=== PATIENT | female | born 1980 | race American Indian/Alaskan Native ===

== ENCOUNTER 2017-03-09 09:33 | Emergency (ER) | payer SELFPAY ==
[2017-03-09 10:06] LABS: Basophils % (Auto) 0.4 % (0.0-1.8); Eosinophils % (Auto) 0.1 % (0.0-4.3); Hematocrit 43.2 % (30.3-42.9); Hemoglobin 14.7 gm/dl (10.1-14.3); Mean Corpuscular HGB Conc 34 % (30-34); Mean Corpuscular Hemoglobin 28 pg (28-32); Mean Corpuscular Volume 81 fl (79-97); Platelet Count 275 K/mm3 (140-440); Red Blood Count 5.33 M/mm3 (3.65-5.03); Red Cell Distribution Width 14.1 % (13.2-15.2); White Blood Count 15.3 K/mm3 (4.5-11.0)
[2017-03-09 10:34] LABS: Bacteria,Urine 1+ /HPF (Negative); Bilirubin,Urine NEG (Negative); Blood,Urine SM (Negative); Ketones,Urine 80 mg/dL (Negative); Leukocyte Esterase,Urine NEG (Negative); Mucus,Urine FEW /HPF; Nitrite,Urine NEG (Negative); Protein,Urine <15 mg/dL mg/dL (Negative); Urobilinogen,Urine < 2.0 mg/dL (<2.0)
[2017-03-09 11:11] LABS: Alanine Aminotransferase 54 units/L (7-56); Albumin 4.3 g/dL (3.9-5); Albumin/Globulin Ratio 1.1 %; Alkaline Phosphatase 54 units/L (35-129); Anion Gap 22 mmol/L; BUN/Creatinine Ratio 8.88; Blood Urea Nitrogen 8 mg/dL (7-17); Calcium 9.5 mg/dL (8.4-10.2); Carbon Dioxide 24 mmol/L (22-30); Chloride 96.2 mmol/L (98-107); Glucose 121 mg/dL (65-100); Lipase 93 units/L (13-60); Potassium 3.3 mmol/L (3.6-5.0); Sodium 139 mmol/L (137-145); Total Protein 8.1 g/dL (6.3-8.2)
[2017-03-09 15:34] VITALS: BP 152/108
[2017-03-09] MEDS ORDERED: NACL 0.9% 1000 ML 1,000 ML IV ONE (17:10)
[2017-03-09] MEDS ORDERED: ZOFRAN IV ONE (17:10)
--- NOTE | 2017-03-09 17:17 | Emergency Department Report ---
HPI - General Chief Complaint: Abdominal Pain Time Seen by Provider: 03/09/17 17:10 - HPI HPI: Room 39 The pt is a 37 y/o female p/w cc of AP and CP. The pt statesshes had constant DAT and SP abd pain for the past 4 days. Pt c/o n/v. This AM the pt developed SSCP decribed as sharp in nature and associated with diaphoresis. Pt states the CP lasted several hours then resolved. Pt denies SOB, dysuria, hematuria, VB or Vag d/c. The pt believes her sxs are due to a recent in the family. Pt has never had a stress test or cardiac catheterization ED Past Medical Hx - Past Medical History Hx Hypertension: Yes - Surgical History Hx Cholecystectomy: Yes - Family History Family history: no significant - Social History Smoking Status: Never Smoker Substance Use Type: Alcohol (occ) - Medications Home Medications: Home Medications Medication Instructions Recorded Confirmed Last Taken Type Acetaminophen/Codeine 1 tab PO Q6H PRN #7 tab 08/27/14 Unknown Rx [Acetaminophen-Codeine #3 TAB] Hyoscyamine Subl [Levsin Sl] 0.125 mg SL Q4HR PRN #7 tablet 08/27/14 Unknown Rx Promethazine [Phenergan TAB] 25 mg PO Q6H PRN #10 tablet 08/27/14 Unknown Rx Famotidine [Pepcid] 20 mg PO BID #30 tablet 03/09/17 Unknown Rx Promethazine [Phenergan TAB] 25 mg PO Q6HR PRN #20 tab 03/09/17 Unknown Rx Promethazine [Phenergan] 25 mg CO Q6HR PRN #5 supp.rect 03/09/17 Unknown Rx ED Review of Systems ROS: Stated complaint: VOMITING X 2 DAYS/ABD/CHEST PAIN Other details as noted in HPI Comment: All other systems reviewed and negative Constitutional: diaphoresis Eyes: denies: eye pain, eye discharge, vision change ENT: denies: ear pain, throat pain Respiratory: denies: cough, shortness of breath, wheezing Cardiovascular: chest pain Endocrine: no symptoms reported Gastrointestinal: abdominal pain, nausea, vomiting Genitourinary: denies: urgency, dysuria, discharge Musculoskeletal: denies: back pain, joint swelling, arthralgia Skin: denies: rash, lesions Neurological: denies: headache, weakness, paresthesias Psychiatric: denies: anxiety, depression Hematological/Lymphatic: denies: easy bleeding, easy bruising Physical Exam - Physical Exam Vital Signs: Vital Signs 03/09/17 03/09/17 09:46 15:32 Temperature 99.1 F 98.7 F Pulse Rate 81 69 Respiratory 18 18 Rate Blood Pressure 131/85 152/108 O2 Sat by Pulse 100 100 Oximetry Physical Exam: GEN: WD, WN F lying on stretcher not appearing to be in acute distress. HEENT: normocephalic, atraumatic PULM: CTA B CV: rrr, no m/r/g ABD: s, with mild discomfort to palpation in the DAT region Neuro: GCS 15 Ext: no deformity ED Course Vital Signs 03/09/17 03/09/17 09:46 15:32 Temperature 99.1 F 98.7 F Pulse Rate 81 69 Respiratory 18 18 Rate Blood Pressure 131/85 152/108 O2 Sat by Pulse 100 100 Oximetry ED Medical Decision Making - Lab Data Result diagrams: 03/09/17 09:54 03/09/17 09:54 Laboratory Tests 03/09/17 03/09/17 03/09/17 09:54 09:54 09:54 WBC 15.3 H RBC 5.33 H Hgb 14.7 H Hct 43.2 H MCV 81 MCH 28 MCHC 34 RDW 14.1 Plt Count 275 Lymph % (Auto) 16.1 Davison % (Auto) 5.8 Eos % (Auto) 0.1 Baso % (Auto) 0.4 Lymph # 2.5 Davison # 0.9 H Eos # 0.0 Baso # 0.1 Seg Neutrophils % 77.6 H Seg Neutrophils # 11.9 H Sodium 139 Potassium 3.3 L Chloride 96.2 L Carbon Dioxide 24 Anion Gap 22 BUN 8 Creatinine 0.9 Estimated GFR > 60 BUN/Creatinine Ratio 8.88 Glucose 121 H Calcium 9.5 Total Bilirubin 1.10 AST 33 ALT 54 Alkaline Phosphatase 54 Troponin T Total Protein 8.1 Albumin 4.3 Albumin/Globulin Ratio 1.1 Lipase 93 H HCG, Qual Negative Urine Color Urine Turbidity Urine pH Ur Specific Brandon Urine Protein Urine Glucose (UA) Urine Ketones Urine Blood Urine Nitrite Urine Bilirubin Urine Urobilinogen Ur Leukocyte Esterase Urine WBC (Auto) Urine RBC (Auto) U Epithel Cells (Auto) Urine Bacteria (Auto) Urine Mucus 03/09/17 03/09/17 09:54 10:18 WBC RBC Hgb Hct MCV MCH MCHC RDW Plt Count Lymph % (Auto) Davison % (Auto) Eos % (Auto) Baso % (Auto) Lymph # Davison # Eos # Baso # Seg Neutrophils % Seg Neutrophils # Sodium Potassium Chloride Carbon Dioxide Anion Gap BUN Creatinine Estimated GFR BUN/Creatinine Ratio Glucose Calcium Total Bilirubin AST ALT Alkaline Phosphatase Troponin T < 0.010 Total Protein Albumin Albumin/Globulin Ratio Lipase HCG, Qual Urine Color Yellow Urine Turbidity Clear Urine pH 5.0 Ur Specific Brandon 1.016 Urine Protein <15 mg/dl Urine Glucose (UA) Neg Urine Ketones 80 Urine Blood Sm Urine Nitrite Neg Urine Bilirubin Neg Urine Urobilinogen < 2.0 Ur Leukocyte Esterase Neg Urine WBC (Auto) 1.0 Urine RBC (Auto) 2.0 U Epithel Cells (Auto) < 1.0 Urine Bacteria (Auto) 1+ Urine Mucus Few - EKG Data -: EKG Interpreted by Or EKG shows normal: sinus rhythm Rate: normal - EKG Data When compared to previous EKG there are: previous EKG unavailable Interpretation: normal EKG - Differential Diagnosis ACS, pancreatitis, GERD, PUD Critical care attestation.: If time is entered above; I have spent that time in minutes in the direct care of this critically ill patient, excluding procedure time. ED Disposition Clinical Impression: Chest pain, Elevated lipase, Abdominal pain Disposition: LEFT AGAINST MED ADVICE Is pt being admited?: No Does the pt Need Aspirin: No Condition: Undetermined Instructions: Chest Pain (ED), Abdominal Pain (ED) Prescriptions: Famotidine [Pepcid] 20 mg PO BID #30 tablet Promethazine [Phenergan TAB] 25 mg PO Q6HR PRN #20 tab PRN Reason: Nausea Promethazine [Phenergan] 25 mg CO Q6HR PRN #5 supp.rect PRN Reason: Vomiting Referrals: PRIMARY CARE, [Primary Care Provider] - 3-5 Days ADRIANA PETERSON MD [Staff Physician] - 3-5 Days RUTH HERNANDES MD [Staff Physician] - 3-5 Days Forms: AMA Form Time of Disposition: 17:45 (pt leaving AMA)
== END 2017-03-09 17:59 | disposition left against medical advice (07) ==
LOC: ED 09:33
DX: R07.9 Chest pain, unspecified (principal); R74.8 Abnormal levels of other serum enzymes; I10 Essential (primary) hypertension
CPT/HCPCS: 36415; 80053; 81001; 83690; 84484; 84703; 85025; 93005; 93010; 96361; 96374; 99283; J2405; J7030

== ENCOUNTER 2020-05-10 15:07 | Emergency (ER) | payer SELFPAY ==
--- NOTE | 2020-05-10 15:33 | Emergency Department Report ---
Blank Doc - Documentation Documentation: 40-year-old female that presents with abdominal pain with n/v. This initial assessment/diagnostic orders/clinical plan/treatment(s) is/are subject to change based on patient's health status, clinical progression and re- assessment by fellow clinical providers in the ED. Further treatment and workup at subsequent clinical providers discretion. Patient/guardians urged not to elope from the ED as their condition may be serious if not clinically assessed and managed. Initial orders include: 1- Patient sent to [facility] for further evaluation and treatment 2- labs 3- UA
[2020-05-10 16:20] LABS: Bilirubin,Urine NEG (Negative); Blood,Urine NEG (Negative); Color,Urine Yellow (Yellow); Mucus,Urine FEW /HPF; RBC,Urine < 1.0 /HPF (0.0-6.0); Urobilinogen,Urine < 2.0 mg/dL (<2.0)
[2020-05-10 16:42] LABS: Basophils % (Auto) 0.2 % (0.0-1.8); Hematocrit 39.9 % (30.3-42.9); Hemoglobin 13.3 gm/dl (10.1-14.3); Lymphocytes # (Auto) 1.3 K/mm3 (1.2-5.4); Lymphocytes % (Auto) 9.5 % (13.4-35.0); Mean Corpuscular HGB Conc 33 % (30-34); Mean Corpuscular Volume 84 fl (79-97); Monocytes # (Auto) 0.3 K/mm3 (0.0-0.8); Monocytes % (Auto) 2.4 % (0.0-7.3); Platelet Count 318 K/mm3 (140-440); Red Blood Count 4.78 M/mm3 (3.65-5.03); Red Cell Distribution Width 15.1 % (13.2-15.2)
[2020-05-10 16:55] LABS: Alanine Aminotransferase 24 units/L (7-56); Albumin 4.3 g/dL (3.9-5); Blood Urea Nitrogen 5 mg/dL (7-17); Calcium 9.4 mg/dL (8.4-10.2); Hemolysis Index 10
[2020-05-10 17:02] LABS: BUN/Creatinine Ratio 7
[2020-05-10] MEDS ORDERED: FAMOTIDINE 20 MG/2 ML INJ IV ONE (19:31)
[2020-05-10] MEDS ORDERED: MORPHINE 4 MG/1 ML INJ IV ONE (19:32)
[2020-05-10] MEDS ORDERED: SODIUM CHLORIDE 0.9% 1000 ML 1,000 ML IV ONE (19:32)
[2020-05-10] MEDS ORDERED: ONDANSETRON 4 MG/2 ML INJ IV ONE (19:32)
--- NOTE | 2020-05-10 20:39 | Cat Scan Report ---
CT ABDOMEN AND PELVIS WITH CONTRAST INDICATION: Abdominal pain CONTRAST: 100 cc Omnipaque 300 IV COMPARISON: 04/12/2014, report unavailable All CT scans at this location are performed using CT dose reduction for ALARA by means of automated e xposure control. NOTE: Resolution is decreased and artifact is introduced by the patient's size. FINDINGS: Lung bases are clear. No pneumoperitoneum is seen. Gallbladder is been removed. No biliary dilatation is seen. Mild fatty infiltration of the liver is seen with hepatomegaly. Liver measures 20 .2 cm in length. No focal lesions are noted. Spleen is not enlarged. Small hiatal hernia is seen. I s ee no abnormalities of the kidneys, adrenals, or pancreas. No evidence of bowel or urinary obstructio n are seen. Appendix appears within normal limits. Mild colonic diverticulosis is seen without eviden ce of diverticulitis. No inflammatory changes are noted. No lymphadenopathy is seen. No free fluid is noted. No adnexal masses are seen. IMPRESSION: No acute abnormalities are seen Signer Name: Aris Galvan MD Signed: 05/10/2020 8:34 PM Workstation Name: [id number]
--- NOTE | 2020-05-10 21:11 | Emergency Department Report ---
ED Abdominal Pain HPI - General Chief Complaint: Abdominal Pain Stated Complaint: NAUSEA Time Seen by Provider: 05/10/20 15:32 Source: patient Mode of arrival: Ambulatory Limitations: No Limitations - History of Present Illness Initial Comments: Patient is a 40-year-old -[place]og[place] female with a history of hypertension who presents to the ED with complaint of acute onset persistent diffuse abdominal pain with persistent intermittent nausea and vomiting for the last 12 hours. Patient states that the last meal she ate was over 24 hours ago and is involved seafood from a restaurant. Patient states that she has not been able to keep anything down for the last 12 hours despite repeated attempts to drink water. Patient states that no one else at home has had similar symptoms. Patient denies dizziness, syncope, fever, chills, cough, chest pain, shortness of breath, dysuria, urinary frequency and urgency, headache, loss of consciousness, vaginal bleeding or vaginal discharge or headache. MD Complaint: abdominal pain, other (nausea and vomiting) -: Sudden, hour(s) (12) Location: diffuse Radiation: none Migration to: no migration Severity scale (0 -10): 6 Quality: cramping, aching, sharp Consistency: constant Improves With: nothing Worsens With: eating, vomiting Context: possible food poisoning Associated Symptoms: denies other symptoms, nausea, vomiting, anorexia. denies: diarrhea, fever, chills, dysuria, hematemesis, melena, syncope - Related Data Previous Rx's Medication Instructions Recorded Last Taken Type Acetaminophen/Codeine 1 tab PO Q6H PRN #7 tab 08/27/14 Unknown Rx [Acetaminophen-Codeine #3 TAB] Hyoscyamine Subl [Levsin Sl] 0.125 mg SL Q4HR PRN #7 tablet 08/27/14 Unknown Rx Promethazine [Phenergan] 25 mg PO Q6H PRN #10 tablet 08/27/14 Unknown Rx Promethazine [Phenergan TAB] 25 mg PO Q6HR PRN #20 tab 03/09/17 Unknown Rx Promethazine [Phenergan] 25 mg [place] Q6HR PRN #5 supp.rect 03/09/17 Unknown Rx Dicyclomine [Bentyl] 20 mg PO Q6H PRN #30 tablet 05/10/20 Unknown Rx Famotidine [Pepcid] 20 mg PO BID #60 tablet 05/10/20 Unknown Rx Ondansetron [Zofran Odt] 4 mg PO Q6HR PRN #20 tab.rapdis 05/10/20 Unknown Rx Allergies Allergy/AdvReac Type Severity Reaction Status Date / Time No Known Allergies Allergy Verified 05/10/20 15:36 ED Review of Systems ROS: Stated complaint: NAUSEA Other details as noted in HPI Constitutional: denies: chills, fever Eyes: denies: eye pain, eye discharge, vision change ENT: denies: ear pain, throat pain Respiratory: denies: cough, shortness of breath, wheezing Cardiovascular: denies: chest pain, palpitations Endocrine: no symptoms reported Gastrointestinal: abdominal pain, nausea, vomiting. denies: diarrhea Genitourinary: denies: urgency, dysuria, discharge Musculoskeletal: denies: back pain, joint swelling, arthralgia Skin: denies: rash, lesions Neurological: denies: headache, weakness, paresthesias Psychiatric: denies: anxiety, depression Hematological/Lymphatic: denies: easy bleeding, easy bruising ED Past Medical Hx - Past Medical History Hx Hypertension: Yes - Surgical History Hx Cholecystectomy: Yes - Social History Smoking Status: Never Smoker Substance Use Type: None - Medications Home Medications: Home Medications Medication Instructions Recorded Confirmed Last Taken Type Acetaminophen/Codeine 1 tab PO Q6H PRN #7 tab 08/27/14 Unknown Rx [Acetaminophen-Codeine #3 TAB] Hyoscyamine Subl [Levsin Sl] 0.125 mg SL Q4HR PRN #7 tablet 08/27/14 Unknown Rx Promethazine [Phenergan] 25 mg PO Q6H PRN #10 tablet 08/27/14 Unknown Rx Promethazine [Phenergan TAB] 25 mg PO Q6HR PRN #20 tab 03/09/17 Unknown Rx Promethazine [Phenergan] 25 mg [place] Q6HR PRN #5 supp.rect 03/09/17 Unknown Rx Dicyclomine [Bentyl] 20 mg PO Q6H PRN #30 tablet 05/10/20 Unknown Rx Famotidine [Pepcid] 20 mg PO BID #60 tablet 05/10/20 Unknown Rx Ondansetron [Zofran Odt] 4 mg PO Q6HR PRN #20 tab.rapdis 05/10/20 Unknown Rx ED Physical Exam - General Limitations: No Limitations General appearance: alert, in no apparent distress - Head Head exam: Present: atraumatic, normocephalic, normal inspection - Eye Eye exam: Present: normal appearance, PERRL, EOMI Pupils: Present: normal accommodation - ENT ENT exam: Present: normal exam, normal orophraynx, mucous membranes moist, TM's normal bilaterally, normal external ear exam - Neck Neck exam: Present: normal inspection, full ROM. Absent: tenderness - Respiratory Respiratory exam: Present: normal lung sounds bilaterally. Absent: respiratory distress, wheezes, rales, chest wall tenderness, accessory muscle use, decreased breath sounds - Cardiovascular Cardiovascular Exam: Present: regular rate, normal rhythm, normal heart sounds. Absent: systolic murmur, diastolic murmur, rubs, gallop - GI/Abdominal GI/Abdominal exam: Present: soft, tenderness (Mildly diffuse abdominal tenderness to palpation), normal bowel sounds. Absent: guarding, rebound, hyperactive bowel sounds, hypoactive bowel sounds, organomegaly - Extremities Exam Extremities exam: Present: normal inspection, full ROM, normal capillary refill - Back Exam Back exam: Present: normal inspection, full ROM. Absent: tenderness, CVA tenderness (R), CVA tenderness (L), muscle spasm, vertebral tenderness - Neurological Exam Neurological exam: Present: alert, oriented X3, CN II-XII intact, normal gait, reflexes normal - Psychiatric Psychiatric exam: Present: normal affect, normal mood - Skin Skin exam: Present: warm, dry, intact, normal color. Absent: rash ED Course Vital Signs 05/10/20 05/10/20 05/10/20 15:36 19:51 20:21 Temperature 98.5 F Pulse Rate 62 Respiratory 18 20 16 Rate Blood Pressure 145/97 O2 Sat by Pulse 100 Oximetry 05/10/20 20:43 Temperature Pulse Rate Respiratory 18 Rate Blood Pressure O2 Sat by Pulse 100 Oximetry ED Medical Decision Making - Lab Data Result diagrams: 05/10/20 16:00 05/10/20 16:00 - Radiology Data Radiology results: report reviewed, image reviewed Findings [address] [address] Cat Scan Report Signed Patient: RICHARD GALVAN MR#: [id number] : 1980 Acct:[id number] Age/Sex: 40 / F ADM Date: 05/10/20 Loc: ED Attending Dr: Ordering Physician: PILI PECK Date of Service: 05/10/20 Procedure(s): CT abdomen pelvis w con Accession Number(s): [id number] cc: PILI PECK CT ABDOMEN AND PELVIS WITH CONTRAST INDICATION: Abdominal pain CONTRAST: 100 cc Omnipaque 300 IV COMPARISON: 04/12/2014, report unavailable All CT scans at this location are performed using CT dose reduction for ALARA by means of automated exposure control. NOTE: Resolution is decreased and artifact is introduced by the patient's size. FINDINGS: Lung bases are clear. No pneumoperitoneum is seen. Gallbladder is been removed. No biliary dilatation is seen. Mild fatty infiltration of the liver is seen with hepatomegaly. Liver measures 20.2 cm in length. No focal lesions are noted. Spleen is not enlarged. Small hiatal hernia is seen. I see no abnormalities of the kidneys, adrenals, or pancreas. No evidence of bowel or urinary obstruction are seen. Appendix appears within normal limits. Mild colonic diverticulosis is seen without evidence of diverticulitis. No inflammatory changes are noted. No lymphadenopathy is seen. No free fluid is noted. No adnexal masses are seen. IMPRESSION: No acute abnormalities are seen Signer Name: Aris Galvan MD Signed: 05/10/2020 8:34 PM Workstation Name: [id number] Transcribed By: Dictated By: Aris Galvan MD Electronically Authenticated By: Aris Galvan MD Signed Date/Time: 05/10/202033 DD/ 30 TD/TT: - Medical Decision Making This is a 40-year-old -[place] female with a history of hypertension who presents to the ED with complaint of acute onset persistent diffuse abdominal pain with persistent intermittent nausea and vomiting for the last 12 hours. Patient states that the last meal she ate was over 24 hours ago and is involved seafood from a restaurant. Patient states that she has not been able to keep anything down for the last 12 hours despite repeated attempts to drink water. Patient states that no one else at home has had similar symptoms. In the ED, patient is alert and oriented x3 and is not in distress. Patient was treated in the ED with normal saline 1 L IV bolus x1, antiemetics Zofran, Pepcid and pain medications. Lab test results were reviewed and showed acute leukocytosis of 14,200, and the rest of the lab test results are all nonactionable. Abdomen pelvis CT scan without contrast showed no acute abnormalities. On reevaluation, patient passed oral fluid challenge in the ED, and the patient's pain is well c ontrolled with medications. Patient was discharged home on antiemetics, antacids and antispasmodic pain medications and was advised to maintain a clear liquid diet for 12 to 24 hours, and to follow-up with her primary care physician in 3 to 5 days for reevaluation or return to the ED immediately if symptoms get worse. - Differential Diagnosis Gastroenteritis; GERD; appendicitis; UTI; gastritis; pancreatitis; colitis Critical care attestation.: If time is entered above; I have spent that time in minutes in the direct care of this critically ill patient, excluding procedure time. ED Disposition Clinical Impression: Viral gastroenteritis, Nausea and vomiting in adult Abdominal pain Qualifiers: Abdominal location: generalized Qualified Code(s): R10.84 - Generalized abdominal pain Disposition: TO HOME OR SELFCARE Is pt being admited?: No Does the pt Need Aspirin: No Condition: Stable Instructions: Abdominal Pain (ED), Acute Nausea and Vomiting (ED), Gastroenteritis (ED) Additional Instructions: All lab test results are nonactionable except for mild leukocytosis of 14,200. Abdomen pelvis CT scan with contrast showed no acute abnormalities. Therefore your symptoms are likely due to a viral syndrome. Therefore maintain a clear liquid diet for 12 to 24 hours, take medication as advised, follow-up with your primary care physician in 3 to 5 days for reevaluation return to the ED immediately if symptoms get worse. Prescriptions: Dicyclomine [Bentyl] 20 mg PO Q6H PRN #30 tablet PRN Reason: Abdominal pain Famotidine [Pepcid] 20 mg PO BID #60 tablet Ondansetron [Zofran Odt] 4 mg PO Q6HR PRN #20 tab.rapdis PRN Reason: Nausea Referrals: [facility] [Provider Group] - 3-5 Days Forms: Work/School Release Form(ED) Time of Disposition: 21:14 Print Language: UPPER SORBI[place]
[2020-05-10 21:47] VITALS: BP 135/79
== END 2020-05-10 21:39 | disposition home or self-care (01) ==
LOC: ED 15:07
DX: A08.4 Viral intestinal infection, unspecified (principal); R11.2 Nausea with vomiting, unspecified; R10.9 Unspecified abdominal pain; I10 Essential (primary) hypertension; Z79.899 Other long term (current) drug therapy; Z90.49 Acquired absence of other specified parts of digestive tract
CPT/HCPCS: 36415; 74177; 80053; 81001; 83690; 84703; 85025; 96361; 96374; 96375; 99284; J2270; J2405; J7030; Q9967

== ENCOUNTER 2020-05-12 09:48 | Emergency (ER) | payer SELFPAY ==
[2020-05-12] MEDS ORDERED: FAMOTIDINE 20 MG/2 ML INJ IV ONE (11:02)
[2020-05-12] MEDS ORDERED: SODIUM CHLORIDE 0.9% 1000 ML 1,000 ML IV ONE (11:02)
[2020-05-12] MEDS ORDERED: ONDANSETRON 4 MG/2 ML INJ IV ONE (11:02)
[2020-05-12] MEDS ORDERED: KETOROLAC 30 MG/1 ML INJ IV ONE (11:02)
[2020-05-12 11:39] LABS: Basophils # (Auto) 0.1 K/mm3 (0.0-0.1); Basophils % (Auto) 0.6 % (0.0-1.8); Eosinophils % (Auto) 0.1 % (0.0-4.3); Hematocrit 36.9 % (30.3-42.9); Hemoglobin 12.5 gm/dl (10.1-14.3); Lymphocytes # (Auto) 1.9 K/mm3 (1.2-5.4); Lymphocytes % (Auto) 18.9 % (13.4-35.0); Mean Corpuscular HGB Conc 34 % (30-34); Mean Corpuscular Volume 83 fl (79-97); Monocytes # (Auto) 0.5 K/mm3 (0.0-0.8); Monocytes % (Auto) 4.8 % (0.0-7.3); Platelet Count 284 K/mm3 (140-440); Red Blood Count 4.48 M/mm3 (3.65-5.03); Red Cell Distribution Width 14.9 % (13.2-15.2)
[2020-05-12] MEDS ORDERED: MORPHINE 4 MG/1 ML INJ IV STA (11:47)
[2020-05-12] MEDS ORDERED: MORPHINE 4 MG/1 ML INJ ONE (11:47)
--- NOTE | 2020-05-12 11:47 | Emergency Department Report ---
ED Abdominal Pain HPI - General Chief Complaint: Abdominal Pain Stated Complaint: ABD PAIN Time Seen by Provider: 05/12/20 10:56 Source: patient Mode of arrival: Ambulatory Limitations: No Limitations - History of Present Illness Initial Comments: 40-year-old obese -[place] female presents emergency department complaining of reemergence of her vomiting and severe abdominal pain for which she was seen and evaluated in the emergency department a couple days ago by Dr. Azalea Esqueda. At that time she was found to have no significant emergent me dical issue and was discharged home patient states that her symptoms did resolve on yesterday but did begin to come back late toward yesterday and early this morning for reasons that are unknown she reports no hemoptysis no hematemesis no hematochezia. No cough no fever, chills, sweats pain is sharp and burning Location: diffuse Radiation: none Severity: mild, moderate Severity scale (0 -10): 10 Consistency: constant Improves With: nothing Worsens With: nothing Associated Symptoms: denies: vomiting, diarrhea, constipation, dysuria, hematemesis, hematochezia, hematuria, anorexia, syncope - Related Data Previous Rx's Medication Instructions Recorded Last Taken Type Acetaminophen/Codeine 1 tab PO Q6H PRN #7 tab 08/27/14 Unknown Rx [Acetaminophen-Codeine #3 TAB] Promethazine [Phenergan] 25 mg PO Q6H PRN #10 tablet 08/27/14 Unknown Rx Promethazine [Phenergan TAB] 25 mg PO Q6HR PRN #20 tab 03/09/17 Unknown Rx Promethazine [Phenergan] 25 mg [place] Q6HR PRN #5 supp.rect 03/09/17 Unknown Rx Dicyclomine [Bentyl] 20 mg PO Q6H PRN #30 tablet 05/10/20 Unknown Rx Famotidine [Pepcid] 20 mg PO BID #60 tablet 05/10/20 Unknown Rx Hyoscyamine Subl [Levsin Sl 0.125 0.125 mg SL Q4HR PRN #7 tablet 05/12/20 Unknown Rx TAB] Ondansetron [Zofran ODT TAB] 4 mg PO Q6HR PRN #20 tab.rapdis 05/12/20 Unknown Rx Allergies Allergy/AdvReac Type Severity Reaction Status Date / Time No Known Allergies Allergy Verified 05/10/20 15:36 ED Review of Systems ROS: Stated complaint: ABD PAIN Other details as noted in HPI Comment: All other systems reviewed and negative ED Past Medical Hx - Past Medical History Hx Hypertension: Yes - Surgical History Hx Cholecystectomy: Yes - Social History Smoking Status: Never Smoker Substance Use Type: Alcohol - Medications Home Medications: Home Medications Medication Instructions Recorded Confirmed Last Taken Type Acetaminophen/Codeine 1 tab PO Q6H PRN #7 tab 08/27/14 Unknown Rx [Acetaminophen-Codeine #3 TAB] Promethazine [Phenergan] 25 mg PO Q6H PRN #10 tablet 08/27/14 Unknown Rx Promethazine [Phenergan TAB] 25 mg PO Q6HR PRN #20 tab 03/09/17 Unknown Rx Promethazine [Phenergan] 25 mg [place] Q6HR PRN #5 supp.rect 03/09/17 Unknown Rx Dicyclomine [Bentyl] 20 mg PO Q6H PRN #30 tablet 05/10/20 Unknown Rx Famotidine [Pepcid] 20 mg PO BID #60 tablet 05/10/20 Unknown Rx Hyoscyamine Subl [Levsin Sl 0.125 0.125 mg SL Q4HR PRN #7 tablet 05/12/20 Unknown Rx TAB] Ondansetron [Zofran ODT TAB] 4 mg PO Q6HR PRN #20 tab.rapdis 05/12/20 Unknown Rx ED Physical Exam - General Limitations: No Limitations General appearance: alert, in no apparent distress - Head Head exam: Present: atraumatic, normocephalic - Eye Eye exam: Present: normal appearance, PERRL Pupils: Present: normal accommodation - ENT ENT exam: Present: mucous membranes moist - Neck Neck exam: Present: normal inspection - Respiratory Respiratory exam: Present: normal lung sounds bilaterally. Absent: respiratory distress - Cardiovascular Cardiovascular Exam: Present: regular rate, normal rhythm. Absent: systolic murmur, diastolic murmur, rubs, gallop - GI/Abdominal GI/Abdominal exam: Present: soft, tenderness, normal bowel sounds, other (No Rovsing, no George Perez, no Worton sign, no rebound tenderness noted. There is no distention the abdomen is soft.). Absent: distended, guarding, rebound, hyperactive bowel sounds, organomegaly, mass, bruit - Extremities Exam Extremities exam: Present: normal inspection - Back Exam Back exam: Present: normal inspection - Neurological Exam Neurological exam: Present: alert, oriented X3 - Psychiatric Psychiatric exam: Present: normal affect, normal mood - Skin Skin exam: Present: warm, dry, intact, normal color. Absent: rash ED Course Vital Signs 05/12/20 05/12/20 09:59 11:50 Temperature 98.0 F Pulse Rate 59 L 58 L Respiratory 20 20 Rate Blood Pressure 153/83 Blood Pressure 151/99 [Left] O2 Sat by Pulse 100 100 Oximetry ED Medical Decision Making - Lab Data Result diagrams: 05/12/20 11:24 05/12/20 11:24 - Radiology Data Radiology results: report reviewed Referring Physician:RYAN CASTPatient Name:RICHARD PERDUEPatient ID:[id number] of :[id number]:FemaleAccession:[id number] Date:[id number] Status:[place] [address] Cat Scan Report Signed Patient: RICHARD PERDUE MR#: [id number] : 1980 Acct:[id number] Age/Sex: 40 / F ADM Date: 05/12/20 Loc: ED Attending Dr: Ordering Physician: PILI BACA Date of Service: 05/12/20 Procedure(s): CT abdomen pelvis w con Accession Number(s): [id number] cc: PILI BACA CT ABDOMEN AND PELVIS WITH CONTRAST INDICATION / CLINICAL INFORMATION: MAIN. TECHNIQUE: Axial CT images were obtained through the abdomen and pelvis after 100 cc Omnipaque 300 milligrams percent IV contrast. All CT scans at this location are performed using CT dose reduction for ALARA by means of automated exposure control. COMPARISON: 05/10/2020 FINDINGS: LOWER CHEST: No significant abnormality. LIVER: No significant abnormality. GALLBLADDER: Previous cholecystectomy BILE DUCTS: No significant abnormality. PANCREAS: No significant abnormality. SPLEEN: No significant abnormality. ADRENALS: No significant abnormality. RIGHT KIDNEY and URETER: No significant abnormality. LEFT KIDNEY and URETER: No significant abnormality. STOMACH and SMALL BOWEL: Small hiatal hernia is present COLON: Diverticulosis of the descending colon and sigmoid colon present APPENDIX: No significant abnormality. PERITONEUM: No free fluid. No free air. No fluid collection. LYMPH NODES: No significant adenopathy. AORTA and ARTERIES: No significant abnormality. IVC and VEINS: No significant abnormality. URINARY BLADDER: No significant abnormality. REPRODUCTIVE ORGANS: No significant abnormality. ADDITIONAL FINDINGS: None. SKELETAL SYSTEM: No significant abnormality. IMPRESSION: 1. No interval changes compared to previous exam 2. Diverticulosis descending colon sigmoid colon. 3. Hiatal hernia Signer Name: Tico Lazo MD Signed: 05/12/2020 2:07 PM Workstation Name: [id number] Transcribed By: FLOYD Dictated By: Tico Lazo MD Electronically Authenticated By: Tico Lazo MD Signed Date/Time: 05/12/201406 DD/ 01 TD/TT: - Medical Decision Making This patient presents with abdominal pain of unclear etiology. A CT scan was performed to evaluate for potential causes of the abdominal pain, however, neither the clinical exam nor the CT has identified an emergent etiology for the abdominal pain. Specifically, given the benign exam, the laboratory studies, and unremarkable CT, I have a very low suspicion for appendicitis, ischemic bowel, bowel perforation, or any other life threatening disease. I have discussed with the patient the level of uncertainty with undifferentiated abdominal pain and clearly explained the need to follow-up as noted on the discharge instructions, or return to the Emergency Department immediately if the pain worsens, develops fever, persistent and uncontrollable vomiting, or for any new symptoms or concerns. Critical care attestation.: If time is entered above; I have spent that time in minutes in the direct care of this critically ill patient, excluding procedure time. ED Disposition Clinical Impression: Abdominal pain, Nausea and vomiting in adult Disposition: DC-01 TO HOME OR SELFCARE Is pt being admited?: No Does the pt Need Aspirin: No Condition: Stable Instructions: Abdominal Pain (ED), Acute Nausea and Vomiting (ED) Prescriptions: Hyoscyamine Subl [Levsin Sl 0.125 TAB] 0.125 mg SL Q4HR PRN #7 tablet PRN Reason: Spasms Ondansetron [Zofran ODT TAB] 4 mg PO Q6HR PRN #20 tab.rapdis PRN Reason: Nausea Referrals: PRIMARY CARE, [Primary Care Provider] - 3-5 Days [facility] [Provider Group] - 3-5 Days
[2020-05-12 12:15] LABS: Alanine Aminotransferase 29 units/L (7-56); BUN/Creatinine Ratio 9; Blood Urea Nitrogen 7 mg/dL (7-17); Calcium 9.2 mg/dL (8.4-10.2); Hemolysis Index 8
[2020-05-12 12:22] LABS: Bilirubin,Direct < 0.2 mg/dL (0-0.2)
--- NOTE | 2020-05-12 14:11 | Cat Scan Report ---
CT ABDOMEN AND PELVIS WITH CONTRAST INDICATION / CLINICAL INFORMATION: MAIN. TECHNIQUE: Axial CT images were obtained through the abdomen and pelvis after 100 cc Omnipaque 300 milligrams pe rcent IV contrast. All CT scans at this location are performed using CT dose reduction for ALARA by means of automated exposure control. COMPARISON: 05/10/2020 FINDINGS: LOWER CHEST: No significant abnormality. LIVER: No significant abnormality. GALLBLADDER: Previous cholecystectomy BILE DUCTS: No significant abnormality. PANCREAS: No significant abnormality. SPLEEN: No significant abnormality. ADRENALS: No significant abnormality. RIGHT KIDNEY and URETER: No significant abnormality. LEFT KIDNEY and URETER: No significant abnormality. STOMACH and SMALL BOWEL: Small hiatal hernia is present COLON: Diverticulosis of the descending colon and sigmoid colon present APPENDIX: No significant abnormality. PERITONEUM: No free fluid. No free air. No fluid collection. LYMPH NODES: No significant adenopathy. AORTA and ARTERIES: No significant abnormality. IVC and VEINS: No significant abnormality. URINARY BLADDER: No significant abnormality. REPRODUCTIVE ORGANS: No significant abnormality. ADDITIONAL FINDINGS: None. SKELETAL SYSTEM: No significant abnormality. IMPRESSION: 1. No interval changes compared to previous exam 2. Diverticulosis descending colon sigmoid colon. 3. Hiatal hernia Signer Name: Tico Lazo MD Signed: 05/12/2020 2:07 PM Workstation Name: [email or web address]
[2020-05-12 17:23] VITALS: BP 137/61
== END 2020-05-12 17:24 | disposition home or self-care (01) ==
LOC: ED 09:48
DX: R10.9 Unspecified abdominal pain (principal); R11.2 Nausea with vomiting, unspecified
CPT/HCPCS: 36415; 74177; 80048; 80076; 83690; 85025; 96361; 96374; 96375; 99284; J1885; J2270; J2405; J7030; Q9967

== ENCOUNTER 2021-01-28 19:35 | Emergency (ER) | payer BC ==
[2021-01-28 23:42] LABS: Bilirubin,Urine NEG (Negative); Blood,Urine NEG (Negative); Color,Urine Yellow (Yellow); Protein,Urine <15 mg/dL mg/dL (Negative); Urobilinogen,Urine < 2.0 mg/dL (<2.0)
[2021-01-28] MEDS ORDERED: predniSONE 20 MG TAB PO ONE (23:50)
[2021-01-28] MEDS ORDERED: KETOROLAC 60 MG/2 ML INJ IM ONE (23:50)
[2021-01-28 23:51] LABS: HCG Qualitative,Urine Negative (Negative)
--- NOTE | 2021-01-29 | Emergency Department Report ---
ED Back Pain/Injury HPI - General Chief Complaint: Back Pain/Injury Stated Complaint: SCIATIC NERVE Time Seen by Provider: 01/28/21 22:53 Source: patient Limitations: No Limitations - History of Present Illness Initial Comments: This is a 32-year-old female nontoxic, well nourished in appearance, no acute signs of distress presents to the ED with c/o of acute on chronic lower back pain. Patient stated that yesterday she was walking up the stairs and tripped and had a fall to right lower back area. Stated since then beleives it aggravated her lower back pains. Patient states has history of sciatica nerve pain which is similar symptoms as today. Patient states that pain radiates through to his right lower extremity. Patient denies any other injuries or trauma. Patient denies any other complaints or symptoms. Patient denies any LOC. Denies any head or neck pains. Denies any bladder or bowel instability. Patient denies any urinary symptoms. Denies any fever, chills, nausea, vomiting, headache, stiff neck, chest pain or shortness of breath. Patient denies any numbness or tingling. Denies any allergies. MD Complaint: back pain -: days(s) Similar Symptoms Previously: Yes Place: home Radiation: right leg Severity: mild Severity scale (0 -10): 8 Quality: aching Consistency: intermittent Improves With: immobilization, sitting upright Worsens With: movement, walking Context: while lifting, turning/twisting Associated Symptoms: denies other symptoms. denies: confusion, weakness, chest pain, difficulty walking, cough, difficulty urinating, diaphoresis, incontinence, fever/chills, constipation, headaches, abdominal pain, loss of appetite, malaise, nausea/vomiting, rash, seizure, shortness of breath, syncope - Related Data Previous Rx's Medication Instructions Recorded Last Taken Type Acetaminophen/Codeine 1 tab PO Q6H PRN #7 tab 08/27/14 Unknown Rx [Acetaminophen-Codeine #3 TAB] Promethazine [Phenergan] 25 mg PO Q6H PRN #10 tablet 08/27/14 Unknown Rx Promethazine [Phenergan TAB] 25 mg PO Q6HR PRN #20 tab 03/09/17 Unknown Rx Promethazine [Phenergan] 25 mg [place] Q6HR PRN #5 supp.rect 03/09/17 Unknown Rx Dicyclomine [Bentyl] 20 mg PO Q6H PRN #30 tablet 05/10/20 Unknown Rx Famotidine [Pepcid] 20 mg PO BID #60 tablet 05/10/20 Unknown Rx Hyoscyamine Subl [Levsin Sl 0.125 0.125 mg SL Q4HR PRN #7 tablet 05/12/20 Unknown Rx TAB] Ondansetron [Zofran ODT TAB] 4 mg PO Q6HR PRN #20 tab.rapdis 05/12/20 Unknown Rx Cyclobenzaprine [Flexeril] 10 mg PO QHS PRN #10 tablet 01/29/21 Unknown Rx Naproxen 500 mg PO Q12H PRN #12 tablet 01/29/21 Unknown Rx Allergies Allergy/AdvReac Type Severity Reaction Status Date / Time No Known Allergies Allergy Verified 05/10/20 15:36 ED Review of Systems ROS: Stated complaint: SCIATIC NERVE Other details as noted in HPI Comment: All other systems reviewed and negative Constitutional: denies: chills, fever Eyes: denies: eye pain, eye discharge, vision change ENT: denies: ear pain, throat pain Respiratory: denies: cough, shortness of breath, wheezing Cardiovascular: denies: chest pain, palpitations Endocrine: no symptoms reported Gastrointestinal: denies: abdominal pain, nausea, diarrhea Genitourinary: denies: urgency, dysuria, discharge Musculoskeletal: back pain. denies: joint swelling, arthralgia Skin: denies: rash, lesions Neurological: denies: headache, weakness, paresthesias Psychiatric: denies: anxiety, depression Hematological/Lymphatic: denies: easy bleeding, easy bruising ED Past Medical Hx - Past Medical History Previous Medical History?: Yes Hx Hypertension: Yes (With ) - Surgical History Past Surgical History?: Yes Hx Cholecystectomy: Yes - Social History Smoking Status: Never Smoker Substance Use Type: Alcohol - Medications Home Medications: Home Medications Medication Instructions Recorded Confirmed Last Taken Type Acetaminophen/Codeine 1 tab PO Q6H PRN #7 tab 08/27/14 Unknown Rx [Acetaminophen-Codeine #3 TAB] Promethazine [Phenergan] 25 mg PO Q6H PRN #10 tablet 08/27/14 Unknown Rx Promethazine [Phenergan TAB] 25 mg PO Q6HR PRN #20 tab 03/09/17 Unknown Rx Promethazine [Phenergan] 25 mg [place] Q6HR PRN #5 supp.rect 03/09/17 Unknown Rx Dicyclomine [Bentyl] 20 mg PO Q6H PRN #30 tablet 05/10/20 Unknown Rx Famotidine [Pepcid] 20 mg PO BID #60 tablet 05/10/20 Unknown Rx Hyoscyamine Subl [Levsin Sl 0.125 0.125 mg SL Q4HR PRN #7 tablet 05/12/20 Unknown Rx TAB] Ondansetron [Zofran ODT TAB] 4 mg PO Q6HR PRN #20 tab.rapdis 05/12/20 Unknown Rx Cyclobenzaprine [Flexeril] 10 mg PO QHS PRN #10 tablet 01/29/21 Unknown Rx Naproxen 500 mg PO Q12H PRN #12 tablet 01/29/21 Unknown Rx ED Physical Exam - General Limitations: No Limitations General appearance: alert, in no apparent distress - Head Head exam: Present: atraumatic, normocephalic - Eye Eye exam: Present: normal appearance, PERRL, EOMI - ENT ENT exam: Present: normal exam - Neck Neck exam: Present: normal inspection, full ROM. Absent: tenderness, meningismus, lymphadenopathy - Respiratory Respiratory exam: Present: normal lung sounds bilaterally. Absent: respiratory distress, wheezes, rales, rhonchi, stridor, chest wall tenderness, accessory muscle use, decreased breath sounds, prolonged expiratory - Cardiovascular Cardiovascular Exam: Present: regular rate, normal rhythm, normal heart sounds. Absent: bradycardia, tachycardia, irregular rhythm, systolic murmur, diastolic murmur, rubs, gallop - GI/Abdominal GI/Abdominal exam: Present: soft. Absent: distended, tenderness - Extremities Exam Extremities exam: Present: normal inspection, full ROM, normal capillary refill. Absent: tenderness, joint swelling, calf tenderness - Back Exam Back exam: Present: normal inspection, full ROM, paraspinal tenderness (right lumbar paraspinal area). Absent: tenderness, CVA tenderness (R), CVA tenderness (L), muscle spasm, vertebral tenderness, rash noted - Expanded Back Exam Expanded Back exam: Absent: saddle anesthesia Back exam: Negative Straight Leg Raising: Left, Right - Neurological Exam Neurological exam: Present: alert, oriented X3, normal gait - Psychiatric Psychiatric exam: Present: normal affect, normal mood - Skin Skin exam: Present: warm, dry, intact, normal color. Absent: rash ED Course Vital Signs 01/28/21 20:07 Temperature 98.8 F Pulse Rate 88 Respiratory 19 Rate Blood Pressure 172/104 O2 Sat by Pulse 95 Oximetry - Reevaluation(s) Reevaluation #1: 01/28/21 23:59 Patient is speaking in full sentences with no signs of distress noted. ED Medical Decision Making - Radiology Data [address] [address] XRay Report Signed Patient: RICHARD PERDUE MR#: [id number] : 1980 Acct:[id number] Age/Sex: 40 / F ADM Date: 01/28/21 Loc: ED Attending : Ordering Physician: CHRISTINA REDDY NP Date of Service: 01/28/21 Procedure(s): XR spine lumbosacral 2-3V Accession Number(s): [id number] cc: CHRISTINA REDDY NP Fluoro Time In Minutes: Pelvis one view INDICATION: Fall FINDINGS: Bilateral femoral heads well-seated in the acetabulum. No acute fractures seen. Sacrum appears normal. Superior and inferior pubic rami appear intact. IMPRESSION: No acute findings. Lumbar spine 2 views INDICATION: Fall FINDINGS: Alignment appears normal. No compression fractures seen. No subluxation. Partial difficult to evaluate L5 due to facet hypertrophy. Signer Name: Brian Israel MD Signed: 01/29/2021 12:39 AM Workstation Name: [id number] Transcribed By: CW Dictated By: AILIN ISRAEL MD Electronically Authenticated By: AILIN ISRAEL MD Signed Date/Time: 01/29/2138 DD/ TD/TT: [address] [address] XRay Report Signed Patient: RICHARD PEDRUE MR#: [id number] : 1980 Acct:[id number] Age/Sex: 40 / F ADM Date: 01/28/21 Loc: ED Attendrogelio carlos Dr: Ordering Physician: CHRISTINA REDDY NP Date of Service: 01/28/21 Procedure(s): XR pelvis 1-2V Accession Number(s): [id number] cc: CHRISTINA REDDY NP Fluoro Time In Minutes: Pelvis one view INDICATION: Fall FINDINGS: Bilateral femoral heads well-seated in the acetabulum. No acute fractures seen. Sacrum appears normal. Superior and inferior pubic rami appear intact. IMPRESSION: No acute findings. Lumbar spine 2 views INDICATION: Fall FINDINGS: Alignment appears normal. No compression fractures seen. No subluxation. Partial difficult to evaluate L5 due to facet hypertrophy. Signer Name: Brian Israel MD Signed: 01/29/2021 12:39 AM Workstation Name: [id number] Transcribed By: CW Dictated By: AILIN ISRAEL MD Electronically Authenticated By: AILIN ISRAEL MD Signed Date/Time: 01/29/2138 DD/ TD/TT: - Medical Decision Making This is a 40-year-old female that presents with low back strain. Patient is stable was examined by me. There is no spinal tenderness. There is no cauda equina syndrome during examination. No bladder or bowel instability. Patient notified of the x-ray results with no questions noted by the patient. Patient received Toradol 60 mg IM and prednisone in the ED which stated that her symptoms has resolved and subsided. Patient is discharged with muscle relaxant and Motrin. Patient was instructed not to operate any machinery while taking muscle relaxant as they cause her drowsiness. Patient was referred to Follow-up with a primary care doctor in 3-5 days or if symptoms worsen and continue return to emergency room as soon as possible. At time of discharge, the patient does not seem toxic or ill in appearance. No acute signs of distress noted. Patient agrees to discharge treatment plan of care. No further questions noted by the patient. This chart is dictated with using [employer] Critical care attestation.: If time is entered above; I have spent that time in minutes in the direct care of this critically ill patient, excluding procedure time. ED Disposition Clinical Impression: Low back strain Qualifiers: Encounter type: initial encounter Qualified Code(s): S39.012A - Strain of muscle, fascia and tendon of lower back, initial encounter Fall Qualifiers: Encounter type: initial encounter Qualified Code(s): W19.XXXA - Unspecified fall, initial encounter Sciatica Qualifiers: Laterality: right Qualified Code(s): M54.31 - Sciatica, right side Disposition: TO HOME OR SELFCARE Is pt being admited?: No Does the pt Need Aspirin: No Condition: Stable Instructions: Sciatica, Cyclobenzaprine tablets Additional Instructions: Follow-up with your primary care doctor in 3-5 days or if symptoms worsen such as bladder or bowel stability, chest pain, short of breath, numbness or tingling sensation in extremities, headache, dizziness, visual changes, nausea vomiting, or abdominal pain, return back to emergency room as was possible. Take naproxen and Flexeril as prescribed. Do not operate heavy machinery while taking Flexeril due to sedation Prescriptions: Cyclobenzaprine [Flexeril] 10 mg PO QHS PRN #10 tablet PRN Reason: Muscle Spasm Naproxen 500 mg PO Q12H PRN #12 tablet PRN Reason: Pain , Severe (7-10) Referrals: PRIMARY MD ELENI [Referring] - 3-5 Days MANNY SPENCER MD [Staff Physician] - 3-5 Days Forms: Work/School Release Form(ED) Time of Disposition: 00:48
--- NOTE | 2021-01-29 00:43 | XRay Report ---
Pelvis one view INDICATION: Fall FINDINGS: Bilateral femoral heads well-seated in the acetabulum. No acute fractures seen. Sacrum appe ars normal. Superior and inferior pubic rami appear intact. IMPRESSION: No acute findings. Lumbar spine 2 views INDICATION: Fall FINDINGS: Alignment appears normal. No compression fractures seen. No subluxation. Partial difficult to evaluate L5 due to facet hypertrophy. Signer Name: Brian Israel MD Signed: 01/29/2021 12:39 AM Workstation Name: [email or web address]
[2021-01-29 02:42] VITALS: BP 139/82
== END 2021-01-29 01:00 | disposition home or self-care (01) ==
LOC: ED 19:35
DX: S39.012A Strain of muscle, fascia and tendon of lower back, initial encounter (principal); M54.30 Sciatica, unspecified side; Z79.899 Other long term (current) drug therapy; Z90.49 Acquired absence of other specified parts of digestive tract; W10.9XXA Fall (on) (from) unspecified stairs and steps, initial encounter; Y93.89 Activity, other specified; Y92.099 Unspecified place in other non-institutional residence as the place of occurrence of the external cause; Y99.8 Other external cause status
CPT/HCPCS: 72100; 72170; 81001; 81025; 96372; 99283; J1885; J7512